=== PATIENT | female | born 1955 | race Caucasian/White ===

== ENCOUNTER 2020-04-29 09:00 | Outpatient (CLI) | payer BC ==
--- NOTE | 2020-04-29 12:12 | BD ---
BONE DENSITOMETRY USING DEXA: Date: 04/29/2020 HISTORY: Postmenopausal screening for osteoporosis. FINDINGS: Lumbar Spine: BMD (g/cm2) L1 1.058 T-Score: 0.6 Z-Score: 2.3 L2 1.095 T-Score: 0.6 Z-Score: 2.4 L3 1.015 T-Score: -0.6 Z-Score: 1.3 L4 0.932 T-Score: -1.2 Z-Score: 0.8 L1-L4 1.024 T-Score: -0.2 Z-Score: 1.6 Femoral Neck: 0.751 T-Score: -0.9 Z-Score: 0.7 Total Femur: 0.940 T-Score: 0.0 Z-Score: 1.3 IMPRESSION: Normal bone mineral density. POS: AH
== END 2020-04-29 09:01 | disposition home or self-care (01) ==
LOC: BICMAMMO 09:00
PROVIDERS: ATTEND Physical Medicine & Rehabilitation
DX: M85.80 Other specified disorders of bone density and structure, unspecified site (principal)
CPT/HCPCS: 77080

== ENCOUNTER 2021-06-23 08:09 | Outpatient (CLI) | payer OTHER | END 2021-06-23 08:10 | disposition home or self-care (01) | LOC: CT 08:09 | PROVIDERS: ATTEND Physician Assistant Medical | DX: R10.32 Left lower quadrant pain (principal); K57.30 Diverticulosis of large intestine without perforation or abscess without bleeding; N20.0 Calculus of kidney; K76.0 Fatty (change of) liver, not elsewhere classified; Z90.5 Acquired absence of kidney | CPT/HCPCS: 74177; 82565 ==

== ENCOUNTER 2021-11-07 12:11 | Outpatient (CLI) | payer OTHER | END 2021-11-07 12:12 | disposition home or self-care (01) | LOC: BICULT 12:11 | PROVIDERS: ATTEND Urology | DX: N20.0 Calculus of kidney (principal); N28.9 Disorder of kidney and ureter, unspecified | CPT/HCPCS: 76770 ==

== ENCOUNTER 2022-12-10 10:04 | Outpatient (CLI) | payer OTHER | END 2022-12-10 10:05 | disposition home or self-care (01) | LOC: BICMAMMO 10:04 | PROVIDERS: ATTEND Family Medicine | DX: Z13.820 Encounter for screening for osteoporosis (principal); N95.9 Unspecified menopausal and perimenopausal disorder; M85.852 Other specified disorders of bone density and structure, left thigh | CPT/HCPCS: 77080 ==